=== PATIENT | male | born 1960 | race Caucasian/White ===

== ENCOUNTER 2016-05-23 20:19 | Inpatient (IN) | payer MEDICAID ==
[2016-05-23] MEDS ORDERED: DEXTROSE 25 GM/50 ML PFS IV PRN ×2 (20:37→22:43)
[2016-05-23] MEDS ORDERED: GLUCOSE (ORAL GEL) 15 GM TUBE PO PRN (20:37)
[2016-05-23] MEDS ORDERED: GLUCAGON 1 MG VIAL SQ PRN (20:37)
[2016-05-23 20:46] LABS: AUTOMATED BASOPHIL 0.3 % (0-2); AUTOMATED EOSINOPHIL 0.1 % (0-5); AUTOMATED LYMPH 12.4 % (17-44); AUTOMATED MONOCYTE 8.8 % (3-10); AUTOMATED NEUTROPHIL 78.4 % (45-76); MPV 9.6 fL (7.4-10.4)
[2016-05-23 20:56] LABS: BLOOD UREA NITROGEN 8 MG/DL (9-20); CALCIUM 9.4 MG/DL (8.4-10.2); CHLORIDE 101 mEq/L (98-107); SODIUM LEVEL 143 mEq/L (137-146); TOTAL PROTEIN 9.2 G/DL (6.3-8.2)
[2016-05-23 21:01] LABS: CALCULATED OSMOLALITY 291 MOs/Kg (270-290)
[2016-05-23 21:03] LABS: GLUCOSE 424 MG/DL (70-99)
[2016-05-23] MEDS ORDERED: NS 1,000 ML IV ONE ×2 (21:05)
[2016-05-23 21:31] LABS: ALLEN'S TEST PASS; BEb -16.3 (+/- 2); TCO2 13.1 MMOL/L (23-27)
[2016-05-23 21:32] LABS: ABG Draw Site Right Brachial
--- NOTE | 2016-05-23 21:46 | EDPRACDOC ---
- General Information Chief Complaint: Fall Stated Complaint: DIZZY/FALL Time Seen by Provider: 05/23/16 21:05 Information Source: Patient Allergies/Adverse Reactions: Allergies Allergy/AdvReac Type Severity Reaction Status Date / Time Penicillins Allergy Unknown Verified 05/23/16 20:28 - History of Present Illness Onset: GLO[employer]AT[employer] + [employer]ETING Exact Onset of Symptoms: Unknown Symptoms Started: Reports: Gradually Symptoms Description: Constant Weakness: Bilateral: Generalized Symptoms: Reports: Weak Symptom Severity: Reports: Unable to performs ADL's Relevant History of: Reports: DM (HAS NOT TAKEN INSULIN IN 2 DAYS. STAYING AT [facility]. HAS INSULIN, JUST CHOSE NOT TO TAKE IT.) Associated signs and symptoms:: Reports: Nausea. Denies: GI Bleed, Chest pain, Diarrhea, Fever, Headache, Palpitations, Vomiting Other History: FELL, DID NOT HURT SELF ED Past Medical History - History Reviewed Yes Nurses notes reviewed and agree except as marked - Patient Medical History Cardiac History: Reports: Hypertension Respiratory History: Reports: COPD Psychological History: Denies: Depression Systemic History: Reports: Diabetes - Social Medical History Smoking Status: Heavy tobacco smoker (5 or more cigarettes/day or daily pipe/ cigar) Lives In: Homeless (JUST ARRIVED AT [facility] IN [place]) EDM Review of Systems - Review of Systems ROS Negative Except as Marked: Yes All systems reviewed and were negative except as marked - Physical Exam Constitutional: Alert, Cachectic, Other (COLD) Oriented to: Time, Person, Place Last recorded Vital Signs: Last Vital Signs Temp Pulse 104 05/23/16 20:23 Resp 26 H 05/23/16 20:23 BP 151/71 05/23/16 20:23 Pulse Ox 97 05/23/16 20:23 Oxygen Pulse Oxygen Saturation 97 O2 Device Room Air Oxygen Flow Rate Fraction of Inspired Oxygen ( FIO2) - HEENT Head: Normal Eye Exam: negative: Pale Conjunctiva, Scleral Icterus Oropharynx: Membranes Dry Nose: No Symptoms Reported Neck: Normal - Respiratory/Cardiovascular Respiratory: Normal - CTA Cardiovascular: Normal - GI Auscultation: Normal Palpation: Normal Tenderness: Non tender - Musculoskeletal Back: Normal Extremities: Clubbing, Other (COLD). negative: Pedal Edema - Integumentary Skin: Rash (SCABIES INFESTATION) - Neurologic Memory Impaired: Normal Motor Function: Normal Mood Description: Normal Thought: Coherent Perception: Normal - Results 05/23/16 20:33 05/23/16 20:33 WBC 8.5 xk/uL (3.8-10.8) 05/23/16 20:33 RBC 4.99 xM/uL (4.70-6.10) 05/23/16 20:33 Hgb 16.2 g/dL (14.0-18.0) 05/23/16 20:33 Hct 50.4 % (42-52) 05/23/16 20:33 MCV 101 fL (80-94) H 05/23/16 20:33 MCH 32.5 pg (27-32) H 05/23/16 20:33 MCHC 32.2 g/dl (33-36) L 05/23/16 20:33 RDW 15.0 % (11.5-14.5) H 05/23/16 20:33 Plt Count 143 xk/uL (130-400) 05/23/16 20:33 MPV 9.6 fL (7.4-10.4) 05/23/16 20:33 Neut % (Auto) 78.4 % (45-76) H 05/23/16 20:33 Lymph % (Auto) 12.4 % (17-44) L 05/23/16 20:33 [place] % (Auto) 8.8 % (3-10) 05/23/16 20:33 Eos % (Auto) 0.1 % (0-5) 05/23/16 20:33 Baso % (Auto) 0.3 % (0-2) 05/23/16 20:33 Absolute Neuts (auto) 6.63 xk/uL (1.7-8.2) 05/23/16 20:33 Absolute Lymphs (auto) 1.02 xk/uL (0.65-4.75) 05/23/16 20:33 Puncture Site Right brachial 05/23/16 21:23 pH 7.130 pH UNITS (7.35-7.45) L* 05/23/16 21:23 pCO2 36.0 mmHg (35-45) 05/23/16 21:23 pO2 101.0 mmHg (80-100) H 05/23/16 21:23 HCO3 12.0 MMOL/L (22-26) L 05/23/16 21:23 Total CO2 13.1 MMOL/L (23-27) L 05/23/16 21:23 Base Excess -16.3 (+/- 2) L 05/23/16 21:23 FiO2 % 21 05/23/16 21:23 Specimen Drawn By Rakma 05/23/16 21:23 Sodium 143 mEq/L (137-146) 05/23/16 20:33 Potassium 5.2 mEq/L (3.5-5.1) H 05/23/16 20:33 Chloride 101 mEq/L (98-107) 05/23/16 20:33 Carbon Dioxide 8 mMOL/L (22-33) L* 05/23/16 20:33 Anion Gap 39 mEq/L (8-16) H 05/23/16 20:33 BUN 8 MG/DL (9-20) L 05/23/16 20:33 Creatinine 0.90 MG/DL (0.66-1.25) 05/23/16 20:33 Estimated GFR (MDRD) > 60 mL/min (>=60) 05/23/16 20:33 Glucose 424 MG/DL (70-99) H* 05/23/16 20:33 POC Capillary Glucose 386 MG/DL (70-99) H 05/23/16 20:24 Calculated Osmolality 291 MOs/Kg (270-290) H 05/23/16 20:33 Calcium 9.4 MG/DL (8.4-10.2) 05/23/16 20:33 Total Bilirubin 0.6 MG/DL (0.2-1.3) 05/23/16 20:33 AST 47 IU/L (17-59) 05/23/16 20:33 ALT 34 IU/L (21-72) 05/23/16 20:33 Alkaline Phosphatase 110 IU/L (38-126) 05/23/16 20:33 Total Protein 9.2 G/DL (6.3-8.2) H 05/23/16 20:33 Albumin 5.4 G/DL (3.5-5.0) H 05/23/16 20:33 Lab Results 05/23/16 05/23/16 05/23/16 21:23 20:33 20:33 WBC 8.5 RBC 4.99 Hgb 16.2 Hct 50.4 MCV 101 H MCH 32.5 H MCHC 32.2 L RDW 15.0 H Plt Count 143 MPV 9.6 Neut % (Auto) 78.4 H Lymph % (Auto) 12.4 L [place] % (Auto) 8.8 Eos % (Auto) 0.1 Baso % (Auto) 0.3 Absolute Neuts (auto) 6.63 Absolute Lymphs (auto) 1.02 Puncture Site Right brachial pH 7.130 L* pCO2 36.0 pO2 101.0 H HCO3 12.0 L Total CO2 13.1 L Base Excess -16.3 L FiO2 % 21 Specimen Drawn By Rakma Sodium 143 Potassium 5.2 H Chloride 101 Carbon Dioxide 8 L* Anion Gap 39 H BUN 8 L Creatinine 0.90 Estimated GFR (MDRD) > 60 Glucose 424 H* POC Capillary Glucose Calculated Osmolality 291 H Calcium 9.4 Total Bilirubin 0.6 AST 47 ALT 34 Alkaline Phosphatase 110 Total Protein 9.2 H Albumin 5.4 H 05/23/16 20:24 WBC RBC Hgb Hct MCV MCH MCHC RDW Plt Count MPV Neut % (Auto) Lymph % (Auto) [place] % (Auto) Eos % (Auto) Baso % (Auto) Absolute Neuts (auto) Absolute Lymphs (auto) Puncture Site pH pCO2 pO2 HCO3 Total CO2 Base Excess FiO2 % Specimen Drawn By Sodium Potassium Chloride Carbon Dioxide Anion Gap BUN Creatinine Estimated GFR (MDRD) Glucose POC Capillary Glucose 386 H Calculated Osmolality Calcium Total Bilirubin AST ALT Alkaline Phosphatase Total Protein Albumin - Departure Disposition: Admit IP To This Hospital Condition: Stable Final Diagnosis: Accidental fall, Noncompliance Diabetic ketoacidosis Qualifiers: Diabetes mellitus type: type 1 Diabetes mellitus complication detail: without coma Qualified Code(s): E10.10 - Type 1 diabetes mellitus with ketoacidosis without coma Hypothermia Qualifiers: Encounter type: initial encounter Qualified Code(s): T68.XXXA - Hypothermia, initial encounter Instructions: RICE: Routine Care for Injuries, Managing Diabetes During Sick Days (ED), Diabetes and Exercise Education/Counseling Given To: Patient Education/Counseling Given Regarding: Diagnosis, Treatment, Prognosis Forms: Patient Discharge Instructions, ED Discharge Instructions Decision to Admit Time: 21:35 Decision to admit date: 05/23/16 Decision to admit: from ED - Physician Consulted Hospitalist Time Called: 21:35 Provider Called: Yehuda Bateman Time Plant Tender Returned Call: 21:35
[2016-05-23] MEDS: Insulin, Regular 100 UNITS in NS 99 ML IV SCH ×2 (22:11)
--- NOTE | 2016-05-23 22:21 | HISTPHYS ---
- Chief Complaint weakness - History of Present Illness PRIMARY CARE PROVIDER: None HPI: The patient is a 55 yo man who is homeless, has diabetes type 2 that is insulin dependent, who presents with not feeling well and having weakness. He has not taken his insulin for more than a day; he reports he received a one- time supply from a [employer] but cannot get any more from the [place]. He reports his weakness is generalized and was severe enough that he slid off the chair and could not walk today. In the emergency department, the patient was found to be in DKA. Onset: today. Duration: constant. Location: generalized weakness. Radiation: none. Character: difficulty walking. Generalized fatigue and weakness. Alleviated by: Nothing. Exacerbated by: exertion. Associated Symptoms: Generalized weakness. Nausea and vomiting. Headache - recurrent. Heartburn/indigestion x years. Nausea and vomiting. Palpitations. Shortness of breath, chronic. Polyuria and polydipsia. Rash: bug bites on his skin, especially arms and legs. Significant itching. No other lesions. Patient reports he thinks the homeless detention has bed bugs. Treatments: none at home except usual medications. - Medical History Cardiac History: Reports: Hypertension Respiratory History: Reports: COPD (mild. Does not use inhalers.) Systemic History: Reports: Diabetes (Type 2, severe, on insulin) Psychological History: Reports: Anxiety. Denies: Depression - Surgical History Reports: Other (Patient reports he has not had any surgery.) - Medictions/Allergies Allergies Penicillins Allergy (Verified 05/23/16 20:28) Unknown Current Medication List: Reviewed Patient reports he was taking insulin and metformin. Need to verify medications. - Family History Reports: Cancer (Mother: breast cancer), Cardiac Disorders (Father: PA), Respiratory Disorders (Father: COPD) - Social History Smoking Status: Heavy tobacco smoker (5 or more cigarettes/day or daily pipe/ cigar) (1 ppd. Started age 11yo. At least a 40 pack-year history.) Social History: Reports: Alcohol Use (Drinks most days, usually 40 oz of beer.) . Denies: Substance Use Disorder Reports last drink was yesterday. - Review of Systems GENERAL: No Fever, chills, or diaphoresis. Positive for fatigue/malaise. HEENT: No ear pain or discharge. No nasal discharge or bleeding. No throat pain or swelling. No eye pain or eye redness. RESPIRATORY: Shortness of breath, chronic. Occasional cough. Occasional wheezing. CARDIOVASCULAR: No chest pain. Positive for palpitations. GI: Nausea and vomiting. No abdominal pain, diarrhea, constipation, or bloody stool. NEUROLOGICAL: Headaches. Generalized but no focal weakness. No numbness. INTEGUMENT: Rash: bug bites on his skin, especially arms and legs. Significant itching. No other lesions. LYMPHATIC SYSTEM: no lymph node swelling or pain. MUSCULOSKELETAL: no pain or joint swelling. GENITOURINARY: No dysuria or hematuria. ENDOCRINE: Polyuria and polydipsia. HEME: No chronic anemia, bleeding, or easy bruising. - Physical Exam Vital Signs: Initial Vitals Pulse Rate 104 05/23/16 20:23 Respiratory Rate 26 H 05/23/16 20:23 Blood Pressure 151/71 05/23/16 20:23 Pulse Oxygen Saturation 97 05/23/16 20:23 Vital Signs - 24 hr 05/23/16 05/23/16 05/23/16 20:23 21:30 22:03 Temperature 94.9 F L Pulse Rate 104 96 96 Respiratory 26 H 20 20 Rate Blood Pressure 151/71 135/76 115/53 L Pulse Oxygen 97 95 96 Saturation Weight: 81.6 kg Height: 5 feet 11 inches BMI: 25.1 - Other Exam Other Exam Findings: GENERAL: Ill-appearing, well nourished, in acute distress. HEENT: Normocephalic, atraumatic; pupils equal and round. Nares patent, without discharge or bleeding. No oropharyngeal lesions or erythema. Mucous membranes are dry. Fruity/acetone odor of breath. NECK: is supple, no masses, trachea midline. RESPIRATORY: Clear to auscultation bilaterally. Chest wall movements are symmetric. No use of accessory muscles to breathe. No rales, rhonchi. Tachypnea, intermittent. Faint, scattered wheezing. CARDIOVASCULAR: Normal S1, S2. No murmurs, rubs, or gallops. PMI non-displaced. Carotids: no carotid bruits. No bradycardia or tachycardia. DP pulses 1-2+ bilaterally. GI: soft, nontender, non-distended, normal active bowel sounds. No hepatosplenomegaly. INTEGUMENT: Clean, dry. Patient scratching arms frequently. Numerous erythematous papules on arms and legs. Left great toe: area of cyanosis on portion of plantar aspect of left great toe , medially, involving approximately 1 cm area; non-tender. MUSCULOSKELETAL: Moving all extremities. No cyanosis, except for small area of left great toe as noted above. No clubbing. Edema: none bilaterally. NEUROLOGICAL: Cranial nerves 2-12 grossly intact. Motor 4+/5 throughout. Reflexes: 2+ bilaterally. Babinski: toes downgoing bilaterally. Intact Finger to nose. Sensory grossly intact to light touch. Intact rapid alternating movements bilaterally. No pronator drift. PSYCHIATRIC: Fully oriented. Normal and appropriate affect. LYMPHATIC: No cervical lymphadenopathy. No supraclavicular lymphadenopathy. - Lab Results Laboratory Results - last 24 hr 05/23/16 05/23/16 05/23/16 20:24 20:33 20:33 WBC 8.5 RBC 4.99 Hgb 16.2 Hct 50.4 MCV 101 H MCH 32.5 H MCHC 32.2 L RDW 15.0 H Plt Count 143 MPV 9.6 Neut % (Auto) 78.4 H Lymph % (Auto) 12.4 L [place] % (Auto) 8.8 Eos % (Auto) 0.1 Baso % (Auto) 0.3 Absolute Neuts (auto) 6.63 Absolute Lymphs (auto) 1.02 Puncture Site pH pCO2 pO2 HCO3 Total CO2 Base Excess FiO2 % Specimen Drawn By Sodium 143 Potassium 5.2 H Chloride 101 Carbon Dioxide 8 L* Anion Gap 39 H BUN 8 L Creatinine 0.90 Estimated GFR (MDRD) > 60 Glucose 424 H* POC Capillary Glucose 386 H Calculated Osmolality 291 H Calcium 9.4 Total Bilirubin 0.6 AST 47 ALT 34 Alkaline Phosphatase 110 Total Protein 9.2 H Albumin 5.4 H 05/23/16 21:23 WBC RBC Hgb Hct MCV MCH MCHC RDW Plt Count MPV Neut % (Auto) Lymph % (Auto) [place] % (Auto) Eos % (Auto) Baso % (Auto) Absolute Neuts (auto) Absolute Lymphs (auto) Puncture Site Right brachial pH 7.130 L* pCO2 36.0 pO2 101.0 H HCO3 12.0 L Total CO2 13.1 L Base Excess -16.3 L FiO2 % 21 Specimen Drawn By Rakma Sodium Potassium Chloride Carbon Dioxide Anion Gap BUN Creatinine Estimated GFR (MDRD) Glucose POC Capillary Glucose Calculated Osmolality Calcium Total Bilirubin AST ALT Alkaline Phosphatase Total Protein Albumin - Diagnostic Findings Chest x-ray: ordered. Foot x-ray: ordered. - Assessment (1) DKA, type 2 E13.10 - OTH DIABETES MELLITUS WITH KETOACIDOSIS WITHOUT COMA Acute Present on Admission: Yes Severe. Patient is critically ill and in DKA. Has an elevated anion gap and acidosis on blood gas. Plan: Admit to ICU. Order DKA protocol. Insulin IV gtt. Measure basic metabolic panel and other labs per schedule. Replace potassium per protocol. Ordered A1c and urine microalbumin. (2) Weakness R53.1 - WEAKNESS Acute Present on Admission: Yes Likely due to DKA. Plan: Treat DKA. (3) Alcohol withdrawal F10.239 - ALCOHOL DEPENDENCE WITH WITHDRAWAL, UNSPECIFIED Acute Present on Admission: Yes Plan: Detox protocol. Check blood alcohol level. Start patient on prn Ativan for breakthrough symptoms. Magnesium, phosphorus, other labs ordered. Give IV thiamine/folate/MVI now, then eventually start patient on PO thiamine/ MVI. Nurse to monitor patient closely and check withdrawal symptom scores. Patient advised to stop drinking but to do so under medical supervision because of DT's risk. Patient advised to take thiamine and multivitamin daily after discharge. (4) Scabies B86 - SCABIES Acute Present on Admission: Yes Rash may be scabies or may be due to bed bugs. Plan: Trial of permethrin topical treatment. Contact precautions. (5) Localized cyanosis R23.0 - CYANOSIS Acute Present on Admission: Yes Small, 1 cm area on medial left great toe that appears somewhat cyanotic. Is non -tender. Patient reports he has been walking in the cold weather. Plan: Monitor foot. X-ray. (6) Tobacco abuse Z72.0 - TOBACCO USE Acute Present on Admission: Yes Counseled to quit. - Plan (1) DKA, type 2 E13.10 - OTH DIABETES MELLITUS WITH KETOACIDOSIS WITHOUT COMA Acute Present on Admission: Yes Severe. Patient is critically ill and in DKA. Has an elevated anion gap and acidosis on blood gas. Plan: Admit to ICU. Order DKA protocol. Insulin IV gtt. Measure basic metabolic panel and other labs per schedule. Replace potassium per protocol. Ordered A1c and urine microalbumin. (2) Weakness R53.1 - WEAKNESS Acute Likely due to DKA. Plan: Treat DKA. (3) Alcohol withdrawal F10.239 - ALCOHOL DEPENDENCE WITH WITHDRAWAL, UNSPECIFIED Acute Plan: Detox protocol. Check blood alcohol level. Start patient on prn Ativan for breakthrough symptoms. Magnesium, phosphorus, other labs ordered. Give IV thiamine/folate/MVI now, then eventually start patient on PO thiamine/ MVI. Nurse to monitor patient closely and check withdrawal symptom scores. Patient advised to stop drinking but to do so under medical supervision because of DT's risk. Patient advised to take thiamine and multivitamin daily after discharge. (4) Scabies B86 - SCABIES Acute Rash may be scabies or may be due to bed bugs. Plan: Trial of permethrin topical treatment. Contact precautions. (5) Localized cyanosis R23.0 - CYANOSIS Acute Present on Admission: Yes Small, 1 cm area on medial left great toe that appears somewhat cyanotic. Is non -tender. Patient reports he has been walking in the cold weather. Plan: Monitor foot. X-ray. (6) Tobacco abuse Z72.0 - TOBACCO USE Acute Present on Admission: Yes Counseled to quit. In summary, this patient is acutely and critically ill. The patient requires treatment of vital organ failure and measures to prevent further life- threatening deterioration of condition. I have spent 50 min in the critical care of this patient. Case Care Discussed with: Patient, Nursing Staff Total Time: 50 min Critical Care: Yes Code: 291
[2016-05-23] MEDS ORDERED: SENNA CONCENTRATE TAB PO PRN (22:48)
[2016-05-23] MEDS ORDERED: PROMETHAZINE 25 MG/ML VIAL IV PRN (22:48)
[2016-05-23] MEDS ORDERED: TEMAZEPAM 15 MG CAP PO PRN (22:48)
[2016-05-23] MEDS ORDERED: BISACODYL 5 MG TAB PO PRN (22:48)
[2016-05-23] MEDS ORDERED: GUAIFEN 100 MG-DEXTROMETH 10 MG PER 5 ML PO PRN (22:48)
[2016-05-23] MEDS ORDERED: BENZONATATE 100 MG PERLES PO PRN (22:48)
[2016-05-23] MEDS ORDERED: Docusate Sodium 100 MG CAP PO PRN (22:48)
[2016-05-23] MEDS ORDERED: SIMETHICONE 80 MG TAB PO PRN (22:48)
[2016-05-23] MEDS ORDERED: ONDANSETRON HCL 4 MG/2 ML VIAL IV PRN (22:48)
[2016-05-23] MEDS ORDERED: REGULAR INSULIN 100 UNITS/ML - 3 ML VIAL SQ SCH (23:00)
[2016-05-23] MEDS ORDERED: NS 1,000 ML IV SCH (23:00)
[2016-05-23] MEDS ORDERED: DKA ELECTROLYTE PROTOCOL SCH (23:00)
[2016-05-23] MEDS ORDERED: PERMETHRIN 5% CREAM 60 GM TUBE TOP SCH ×2 (23:00→23:45)
[2016-05-23] MEDS ORDERED: D5-1/2NS/KCL 20 mEq 1,000 ML IV SCH (23:00)
[2016-05-23] MEDS ORDERED: NS/KCl 20 mEq 1,000 ML IV SCH (23:00)
[2016-05-23] MEDS ORDERED: Insulin, Regular 100 UNITS in NS 99 ML IV SCH ×2 (23:00)
[2016-05-23 23:22] LABS: LEUKOCYTES/URINE NEG (NEGATIVE); NITRITE/URINE NEG (NEGATIVE); RBC/URINE 0-2 (0-2); URINE OCCULT BLOOD 2+ (NEG/TRACE); WBC/URINE 0-2 (0-2)
[2016-05-24] MEDS ORDERED: LORAZEPAM 1 MG TAB PO PRN ×3 (00:01)
[2016-05-24] MEDS ORDERED: LORAZEPAM 2 MG/ML VIAL IV PRN ×3 (00:01)
[2016-05-24] MEDS ORDERED: DICYCLOMINE 20 MG TAB PO PRN (00:01)
[2016-05-24 00:12] LABS: BLOOD UREA NITROGEN 10 MG/DL (9-20); CALCIUM 9.1 MG/DL (8.4-10.2); CALCULATED OSMOLALITY 281 MOs/Kg (270-290); CHLORIDE 102 mEq/L (98-107); GLUCOSE 191 MG/DL (70-99); SODIUM LEVEL 144 mEq/L (137-146)
[2016-05-24] MEDS ORDERED: Albuterol/Ipratropium Neb 3 ML NEB NEB PRN (00:18)
--- NOTE | 2016-05-24 00:38 | DIRPT ---
CLINICAL DATA: Cough and congestion. Syncope. EXAM: PORTABLE CHEST 1 VIEW COMPARISON: None. FINDINGS: Heart, mediastinum and jamie are unremarkable. Lungs are hyperexpanded but clear. No pleural effusion or pneumothorax. Bony thorax is intact. IMPRESSION: No active disease. Electronically Signed By: Saurabh Yusuf M.D. On: 05/24/2016 00:35
[2016-05-24 00:39] VITALS: BMI 19.5
[2016-05-24] MEDS: D5-1/2NS/KCL 20 mEq 1,000 ML IV SCH ×2 (00:55→09:00)
[2016-05-24] MEDS ORDERED: Alcohol Withdrawal Scale Orders XX SCH (01:00)
[2016-05-24] MEDS ORDERED: VITAMINS,PRENATAL TABLET PO ONE (01:00)
[2016-05-24] MEDS ORDERED: FOLIC ACID 1 MG, THIAMINE 100 MG, VITAMINS, MULTIPLE 10 ML in NS 1,000 ML IV SCH ×4 (01:00)
[2016-05-24] MEDS ORDERED: TRAMADOL HCL 50 MG TAB PO PRN (01:30)
[2016-05-24] MEDS ORDERED: RANITIDINE 150 MG TAB PO ONE (02:00)
[2016-05-24] MEDS ORDERED: Vaccine Screening Complete SCH (02:00)
[2016-05-24] MEDS ORDERED: ENOXAPARIN 40 MG/0.4 ML PFS SQ SCH (02:00)
[2016-05-24] MEDS ORDERED: Magnesium Sulfate 2 gm/D5W 2 GM/50 ML RTU IV ONE (02:00)
[2016-05-24 03:14] LABS: BLOOD UREA NITROGEN 9 MG/DL (9-20); CALCIUM 8.8 MG/DL (8.4-10.2); CALCULATED OSMOLALITY 263 MOs/Kg (270-290); CHLORIDE 106 mEq/L (98-107); GLUCOSE 165 MG/DL (70-99); SODIUM LEVEL 135 mEq/L (137-146)
[2016-05-24 05:02] LABS: MPV 9.1 fL (7.4-10.4)
[2016-05-24 05:15] LABS: BLOOD UREA NITROGEN 8 MG/DL (9-20); CALCIUM 8.7 MG/DL (8.4-10.2); CALCULATED OSMOLALITY 262 MOs/Kg (270-290); CHLORIDE 104 mEq/L (98-107); GLUCOSE 134 MG/DL (70-99); SODIUM LEVEL 136 mEq/L (137-146)
[2016-05-24] MEDS ORDERED: RANITIDINE 150 MG TAB PO SCH (09:00)
[2016-05-24] MEDS ORDERED: DEXTROSE 25 GM/50 ML PFS IV PRN (09:29)
[2016-05-24] MEDS ORDERED: GLUCOSE (ORAL GEL) 15 GM TUBE PO PRN (09:29)
[2016-05-24] MEDS ORDERED: GLUCAGON 1 MG VIAL SQ PRN (09:29)
[2016-05-24] MEDS: Insulin, Regular 100 UNITS in NS 99 ML IV SCH ×2 (09:30)
--- NOTE | 2016-05-24 09:32 | GENMEDPROG ---
Chief Complaint: DKA resolved. More alert. Denies nausea, vomiting. No withdrawal symptoms currently. Normally uses lantus 45 units daily - Physical Examination Vital Signs and I&O: Last Vital Signs Temp 98.2 F 05/24/16 07:00 Pulse 77 05/24/16 09:00 Resp 20 05/24/16 06:15 BP 129/81 05/24/16 09:00 Pulse Ox 97 05/24/16 09:00 Oxygen Pulse Oxygen Saturation 97 O2 Device Room Air Oxygen Flow Rate Fraction of Inspired Oxygen ( FIO2) Intake & Output 05/21/16 05/22/16 05/23/16 05/24/16 23:59 23:59 23:59 23:59 Intake Total 514 2051 Output Total 1100 Balance 514 951 Patient's weight 63.639 kg Respiratory: Normal - CTA
[2016-05-24] MEDS ORDERED: GLARGINE INSULIN (LANTUS) 100 UNITS/ML PEN SQ ONE (09:45)
[2016-05-24] MEDS ORDERED: GLARGINE INSULIN (LANTUS) 100 UNITS/ML PEN SQ SCH (10:00)
--- NOTE | 2016-05-24 10:11 | DIRPT ---
CLINICAL DATA: Partial cyanosis of the left great toe. EXAM: LEFT FOOT - COMPLETE 3+ VIEW COMPARISON: None. FINDINGS: There is no evidence of fracture or dislocation. There is no evidence of arthropathy or other focal bone abnormality. Soft tissues are unremarkable. IMPRESSION: Negative. Electronically Signed By: Kyle Mccray M.D. On: 05/24/2016 10:09
[2016-05-24 11:03] VITALS: TEMP 99
[2016-05-24] MEDS ORDERED: REGULAR INSULIN 100 UNITS/ML - 3 ML VIAL SQ SCH (11:30)
[2016-05-24 12:57] VITALS: BP 113/60
[2016-05-24 15:36] VITALS: PULSE 72
--- NOTE | 2016-05-24 17:11 | PCM.DCS92 ---
- Final/Secondary Discharge Diagnosis (1) DKA, type 2 Acute E13.10 - OTH DIABETES MELLITUS WITH KETOACIDOSIS WITHOUT COMA Present on Admission: Yes without coma with rodent exterminator use E13.10 - Other specified diabetes mellitus with ketoacidosis without coma; Z79.4 - [facility] (current) use of insulin Comment: DKA resolved in approximately 6-12 hours. Planned transfer out of the ICU however patient has elected to leave AMA. (2) Alcohol abuse Acute F10.10 - ALCOHOL ABUSE, UNCOMPLICATED Present on Admission: Yes Comment: Stressed alcohol cessation (3) Noncompliance Acute Z91.19 - PATIENT'S NONCOMPLIANCE W OTH MEDICAL TREATMENT AND REGIMEN Present on Admission: Yes Comment: Leaving AMA (4) Scabies Acute B86 - SCABIES Present on Admission: Yes Comment: Rash may be scabies or may be due to bed bugs. Plan: Trial of permethrin topical treatment. Contact precautions. (5) Tobacco abuse Acute Z72.0 - TOBACCO USE Present on Admission: Yes Comment: Counseled to quit. Discharge Disposition: AMA Discharge Condition: Improved Cognitive Discharge Status: Unimpaired Forms: Patient Discharge Instructions, ED Discharge Instructions Physician Follow up/Referrals: None,No Provider [Family Provider] - One Week O2 Device: Room Air - DC Summary Notes Hospital Course Note:: Discharge summary on patient named CINDI WILSON admitted to [facility] on 05/23/16 by Yehuda Bateman MD. Date of discharge is []. Mr. Wilson is a 55-year-old white male with history of diabetes and alcohol abuse as well as long history of noncompliance. Presented to the hospital stating that he had not taken his diabetes medicines in the last 24 hours. He was nauseous and weak. He was found to be in diabetic ketoacidosis and was admitted to the intensive care unit. He was started on IV fluids and IV insulin. Over the course of 6-12 hours his DKA resolved and his electrolytes are within normal limits. Originally we planned to transfer out of the ICU and continue his care. Unfortunately he has elected to sign out AMA and left prior to me being able to attempt to convince him to stay. - Physical Exam Vital Signs: Last Vital Signs Temp 99.0 F 05/24/16 11:00 Pulse 72 05/24/16 14:00 Resp 20 05/24/16 12:00 BP 113/60 05/24/16 12:00 Pulse Ox 99 05/24/16 12:00 Oxygen Pulse Oxygen Saturation 99 O2 Device Room Air Oxygen Flow Rate Fraction of Inspired Oxygen ( FIO2) Constitutional: No apparent distress, Alert, Well appearing Oriented to: Time, Person, Place - HEENT Head: Normal Eye: negative: Pale Conjunctiva, Scleral Icterus Oropharynx: Membranes Dry Nose: No Symptoms Reported - Respiratory/Cardiovascular Respiratory: Normal - CTA Cardiovascular: Normal - GI Auscultation: Normal Palpation: Normal Tenderness: Non tender - Musculoskeletal Back: Normal Extremities: Clubbing, Other (COLD). negative: Pedal Edema - Integumentary Skin: Rash (SCABIES INFESTATION) - Neurologic Memory Impaired: Normal Mood Description: Normal Thought: Coherent Perception: Normal
[2016-05-24] MEDS ORDERED: CHLORHEXIDINE (HIBICLENS) 4 OZ BOTTLE TOP SCH (21:00)
[2016-05-25] MEDS ORDERED: PNEUMOCOCCAL 0.5 ML VIAL IM ONE (08:00)
[2016-05-25] MEDS ORDERED: GLARGINE INSULIN (LANTUS) 100 UNITS/ML PEN SQ SCH (08:00)
[2016-05-27] MEDS ORDERED: THIAMINE 100 MG TAB PO SCH (12:00)
[2016-05-27] MEDS ORDERED: VITAMINS,PRENATAL TABLET PO SCH (12:00)
== END 2016-05-24 15:20 | disposition left against medical advice (07) | DRG 638 ==
LOC: ED 20:19 → ICU 22:15
PROVIDERS: ADMIT Internal Medicine; ATTEND Hospitalist
DX: E13.10 Other specified diabetes mellitus with ketoacidosis without coma (principal); F10.239 Alcohol dependence with withdrawal, unspecified; I10 Essential (primary) hypertension; B86 Scabies; F17.210 Nicotine dependence, cigarettes, uncomplicated; Z59.0 Homelessness; J44.9 Chronic obstructive pulmonary disease, unspecified; Z79.4 Long term (current) use of insulin; F41.9 Anxiety disorder, unspecified; Z88.0 Allergy status to penicillin; R23.0 Cyanosis
CPT/HCPCS: 36415; 36600; 71010; 80048; 80053; 80307; 81001; 82043; 82803; 82962; 83036; 83735; 84100; 85025; 85027; 87040; 87070; 87086; 87205; 87641; 96360; 96361; 96372; 99284; A9153; J1650; J1815; J2405; J3411; J3475; J3490; J7030; J7040; J7070